=== PATIENT | male | born 2005 | race Caucasian/White ===

== ENCOUNTER 2023-05-08 05:33 | Emergency (ER) | payer OTHER ==
[~2023-05-08] VITALS: Ht 175.3 cm; Wt 93.2 kg
[2023-05-08] MEDS ORDERED: NAPROSYN500 MG PO (06:03)
[2023-05-08 06:44] VITALS: BP 116/79; PULSE 70; TEMP 97.9
== END 2023-05-08 06:46 | disposition home or self-care (01) ==
LOC: COL.ER 05:33
DX: M54.50 Low back pain, unspecified (principal); G89.29 Other chronic pain; Z79.1 Long term (current) use of non-steroidal anti-inflammatories (NSAID)
CPT/HCPCS: J1885